=== PATIENT | male | born 1965 | race Caucasian/White ===

== ENCOUNTER 2018-02-13 12:25 | Emergency (ER) | payer SELFPAY ==
[2018-02-13 12:36] VITALS: TEMP 99.2; BMI 41.1
--- NOTE | 2018-02-13 12:48 | PDOC ---
History of Present Illness - History of Present Illness Initial Comments: Kazakh interpretation via [employer] phone 02/13/18 15:26 <Vicky Suh - Last Filed: 02/13/18 15:26> - General History Source: Patient Exam Limitations: No Limitations - History of Present Illness Initial Comments: 02/13/18 13:13 Mr. Ronny Mcarthur is a 52 yo M with no pertinent past medical history presenting with a laceration to the left cheek that was sustained at approximately 12 pm while at work. Per the patient, he states he was grinding a brick against a sample grinder when it broke loose and grazed his face. He denies blunt head trauma and LOC. Never had a tetanus shot beforehand. Denies the following: loss of sensation in the face, loss of motor skills in the face, nausea, dizziness, lightheadedness, headaches, vomiting, chest pain, SOB, abdominal pain, diarrhea , dysuria, and melena. <Dmitry Magaña - Last Filed: 02/13/18 16:35> - General Chief Complaint: Laceration Stated Complaint: LACERATION ON FACE Time Seen by Provider: 02/13/18 12:40 Past History <Vicky Suh - Last Filed: 02/13/18 15:26> - Past Medical History COPD: No - Suicide/Smoking/Psychosocial Hx Smoking History: Never smoked Have you smoked in the past 12 months: No Information on smoking cessation initiated: No Hx Alcohol Use: No Drug/Substance Use Hx: No Substance Use Type: Alcohol <Dmitry Magaña - Last Filed: 02/13/18 16:35> - Past Medical History Allergies/Adverse Reactions: Allergies Allergy/AdvReac Type Severity Reaction Status Date / Time No Known Allergies Allergy Verified 02/04/16 06:15 Home Medications: Ambulatory Orders NK [No Known Home Medication] 02/04/16 Review of Systems - Review of Systems Able to Perform ROS?: Yes Constitutional: No: Chills, Diaphoresis, Fever HEENTM: No: Eye Pain, Blurred Vision, Tearing, Recent change in vision, Double Vision, Ear Pain, Ear Discharge, Nose Pain, Nose Congestion, Tinnitus, Nose Bleeding, Hearing Loss, Throat Pain, Throat Swelling, Mouth Pain, Difficulty Swallowing, Mouth Swelling Respiratory: No: Cough, Shortness of Breath Cardiac (ROS): No: Chest Pain, Lightheadedness, Palpitations, Syncope, Chest Tightness ABD/GI: No: Constipated, Diarrhea, Nausea, Poor Appetite, Poor Fluid Intake, Rectal Bleeding, Vomiting, Abdominal cramping, Tarry Stools : No: Burning, Dysuria, Hematuria Musculoskeletal: No: Back Pain, Joint Pain Integumentary: Yes: Other (laceration to the left face). No: Bruising, Flushing , Lesions, Lumps Neurological: No: Headache, Tingling, Tremors, Weakness, Dizziness Psychiatric: No: Stressors Endocrine: No: Increased Hunger Hematologic/Lymphatic: No: Anemia <Dmitry Magaña - Last Filed: 02/13/18 16:35> *Physical Exam - Vital Signs Last Vital Signs Temp Pulse Resp BP Pulse Ox 99.2 F 76 18 169/100 100 02/13/18 12:33 02/13/18 12:33 02/13/18 12:33 02/13/18 12:33 02/13/18 12:33 <Vicky Suh - Last Filed: 02/13/18 15:26> - Vital Signs Last Vital Signs Temp Pulse Resp BP Pulse Ox 99.2 F 76 18 169/100 100 02/13/18 12:33 02/13/18 12:33 02/13/18 12:33 02/13/18 12:33 02/13/18 12:33 - Physical Exam General Appearance: Yes: Nourished, Appropriately Dressed HEENT: positive: EOMI, JACKIE, Normal Voice, Symmetrical, Other (no through and through in the mouth communicating to the laceration. no blood in the mouth cavity. 5 cm deep laceration linear. ) Neck: positive: Trachea midline. negative: Lymphadenopathy (R), Lymphadenopathy (L) Respiratory/Chest: positive: Lungs Clear, Normal Breath Sounds. negative: Chest Tender, Respiratory Distress, Accessory Muscle Use Cardiovascular: positive: Regular Rhythm, Regular Rate, S1, S2. negative: Systolic Murmur Vascular Pulses: Dorsalis-Pedis (R): 3+, Doralis-Pedis (L): 3+ Gastrointestinal/Abdominal: positive: Normal Bowel Sounds. negative: Tender Lymphatic: negative: Adenopathy Musculoskeletal: positive: Normal Inspection. negative: CVA Tenderness Extremity: positive: Normal Capillary Refill, Normal Inspection, Normal Range of Motion. 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, Fully Oriented, Alert, Normal Mood/ Affect, Normal Response, Motor Strength 5/5 <Dmitry Magaña - Last Filed: 02/13/18 16:35> Procedures - Laceration/Wound Repair Left Anterior Cheek Wound Length: 2.6 to 5.0 cm Wound Explored: clean, no foreign body present Wound's Depth, Shape: superficial, linear Irrigated w/ Saline: Yes Betadine Prep: No Anesthesia: 1% Lidocaine w/ Epi Amount of Anesthetic (ccs): 6 Wound Debrided: minimal Wound Repaired With: Sutures Suture Size/Type: 5:0 Number of Sutures: 12 (simple interrupted) Layer Closure: Yes Deep Layer Suture Size/Type: 5:0 (polysorb) Number of Deep Layer Sutures: 2 Sterile Dressing Applied: Yes Splint Applied: No Sling Applied: No Progress: 02/13/18 15:35 Asymptomatic and pain free at the end of the procedure. <Dmitry Magaña - Last Filed: 02/13/18 16:35> Medical Decision Making - Medical Decision Making 02/13/18 16:26 Mr. devi is a 52 yo M with no pertinent past medical hx (does not have a PMD) who presents to the ED with a laceration from a grinding disc. ddx: laceration Initial vitals: Initial Vital Signs Temp Pulse Resp BP Pulse Ox 99.2 F 76 18 169/100 100 02/13/18 12:33 02/13/18 12:33 02/13/18 12:33 02/13/18 12:33 02/13/18 12:33 Refer to procedure note for details of the laceration repair. The patient was given lidocaine with epi for analgesia control. The patient was asymptomatic after the procedure and had no complaints. His return precautions and wound care instructions were given. He was also told to follow up with his PMD for further care. He understood, agreed, and was able to walk out of the department on his own without assistance. Dispo: DC to home <Dmitry Magaña - Last Filed: 02/13/18 16:35> *DC/Admit/Observation/Transfer <Vicky Suh - Last Filed: 02/13/18 15:26> - Discharge Dispostion Decision to Admit order: No Decision to Admit order Date/Time: 02/13/18 15:38 <Dmitry Magaña - Last Filed: 02/13/18 16:35> Diagnosis at time of Disposition: Laceration - Discharge Dispostion Disposition: HOME - Referrals Referrals: [facility] [place] [Provider Group] - Patient Instructions Printed Discharge Instructions: DI for Laceration Repair Additional Instructions: You were seen in the emergency department for laceration repair to your left cheek. Your laceration was cleaned out and 2 deep dissolving sutures and 12 superficial non-dissolvable sutures were applied and your wound edges were approximated. Please return to the emergency department in 5 days for suture removal. Please keep the area dry; you can shower but keep that area where the sutures are. Please return to the emergency department if you develop new concerning symptoms such as fevers, chills, or loss of sensation in the face or your current symptoms worsen. Please see the referred primary medical doctor clinic within 24-36 hours for follow up care. Fuiste vista en el departamento de emergencia por noel reparacin de [facility]aceracin [facility]. Se elimin la laceracin y se aplicaron 2 suturas de disolucin profunda y 12 suturas superficiales no disolubles y se aproximaron los bordes de la herida. Por favor regrese al departamento de emergencia en 5 morris para remover la sutura. Por favor, mantenga el rhonda seca; puedes ducharte rossy mantener mary jane rhonda donde estn las suturas. Regrese al servicio de urgencias si desarrolla nuevos sntomas preocupantes, oswaldo fiebre, escalofros o prdida de la sensibilidad en la eduin o empeoran gill sntomas actuales. Consulte la clnica mdica primaria referida dentro de las 24-36 horas para recibir atencin de seguimiento. - Post Discharge Activity Forms/Work/School Notes: Back to Work
[2018-02-13] MEDS ORDERED: DIPHTH,PERTUSS(ACELL),TET 0.5 ML DISP.SYRIN IM ONE (13:24)
[2018-02-13] MEDS ORDERED: LIDO 2%/EPI 1:200000 PRESRVFRE (20 ML SDVIAL) INF ONE (13:28)
[2018-02-13] MEDS ORDERED: LIDOCAINE 1%/EPI 1:100000 (20 ML MULTI DOSE VIAL) ONE (13:39)
--- NOTE | 2018-02-13 15:25 | PDOC ---
Attending Attestation - Resident Resident Name: ArchanaDmitry - ED Attending Attestation I have performed the following: I have examined & evaluated the patient, The case was reviewed & discussed with the resident, I agree w/resident's findings & plan - HPI HPI: 02/13/18 15:22 Mr. 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 no pain, bleeding controlled; no weakness or paresthesias. 02/13/18 15:26 - Physicial Exam PE: 02/13/18 15:24 NAD, well appearing, PERRL, EOMI, MMM, nl conjunctiva, +left cheek laceration, deep and SQ tissue x 5cm, CN II-XII intact, dentition intact, no mucosal injury..; neck supple. GUNTER x4, no focal neuro deficits. No peripheral edema. normal color for ethnicity, [facility]. - Medical Decision Making 02/13/18 15:22 Mr. Ronny Mcarthur is a 52 yo M with no pertinent past medical history presenting with a laceration to the left cheek that was sustained at approximately 12 pm while at work. vitals with mild hypertension, will recheck, likely from pain and recent incident. tdap updated. laceration repaired by resident under my supervision, copious irrigation with sterile water x 500cc. 2 deep absorbable for better approximation., 12 simple interrupted 5-0 nylon sutures with hemostasis to left cheek deep laceration ~ 5cm. no neuro deficits or facial nerve/trigeminal palsy. return to ED in 5 days for suture removal. topical abx, dry dressings and cleaning, wound care precautions. monitor for signs of infection such as discharge, odor, pain, redness, swelling and f/c. instructions provided to patient and family at bedside, return precautions discussed. 02/13/18 15:25 02/13/18 15:27
[2018-02-13 16:14] VITALS: BP 146/115; PULSE 73
== END 2018-02-13 16:52 | disposition home or self-care (01) ==
LOC: JER 12:25
PROC: 0HQ1XZZ Repair Face Skin, External Approach (ICD-10-PCS; principal; 2018-02-13)
PROC: 3E0234Z Introduction of Serum, Toxoid and Vaccine into Muscle, Percutaneous Approach (ICD-10-PCS; 2018-02-13)
DX: S01.412A Laceration without foreign body of left cheek and temporomandibular area, initial encounter (principal); W20.8XXA Other cause of strike by thrown, projected or falling object, initial encounter; Y93.89 Activity, other specified; Y92.9 Unspecified place or not applicable; Y99.0 Civilian activity done for income or pay; I10 Essential (primary) hypertension
CPT/HCPCS: 90715; 99281-25

== ENCOUNTER 2018-02-17 09:50 | Emergency (ER) | payer OTHER ==
[2018-02-17 10:07] VITALS: BP 155/70; PULSE 67; TEMP 98.9; BMI 38.4
--- NOTE | 2018-02-17 10:38 | PDOC ---
Suture Removal/Wound Check HPI - History of Present Illness Chief Complaint: Suture/Staple Removal(Here) Stated Complaint: SUTURE/STAPLE REMOVAL Time Seen by Provider: 02/17/18 10:13 History Source: Yes: Patient Exam Limitations: Yes: No Limitations Treated at: [facility] ED - Previous ED Treatment Type of procedure performed on last visit: Yes: Laceration Repair Tetanus Immunization: Yes: Up to Date Antibiotics Prescribed: No - Onset of Previous Treatment Select one - (for the option above): Days (5) Comment:: 02/17/18 16:14 Came for suture removal after 5 days. 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 X-rays negative. Denies pain, swelling or bleeding from site however has a large hematoma above suture line 02/17/18 16:15 Past History - Travel Traveled outside of the country in the last 30 days: No Close contact w/someone who was outside of country & ill: No - Past Medical History Allergies/Adverse Reactions: Allergies Allergy/AdvReac Type Severity Reaction Status Date / Time No Known Allergies Allergy Verified 02/04/16 06:15 Home Medications: Ambulatory Orders NK [No Known Home Medication] 02/04/16 COPD: No DVT: No - Immunization History Immunization Up to Date: Yes - Suicide/Smoking/Psychosocial Hx Smoking History: Never smoked Have you smoked in the past 12 months: No Hx Alcohol Use: Yes Drug/Substance Use Hx: No Substance Use Type: Alcohol Suture Removal/Wound Check PE - Physical Exam Laceration/Wound Check Symptoms: denies: Fever Current Severity Level: None Maximum Severity Level: None Location of Laceration/Wound: left: Face *Review of Systems - Review of Systems Able to Perform ROS?: Yes Constitutional: Yes: Symptoms Reported, See HPI HEENTM: Yes: Symptoms Reported, See HPI All Other Systems: Reviewed and Negative *Physical Exam - Vital Signs Last Vital Signs Temp Pulse Resp BP Pulse Ox 98.9 F 67 16 155/70 100 02/17/18 10:04 02/17/18 10:04 02/17/18 10:04 02/17/18 10:04 02/17/18 10:04 - Physical Exam General Appearance: Yes: Nourished, Appropriately Dressed. No: Apparent Distress HEENT: positive: JACKIE, Normal ENT Inspection, TMs Normal, Pharynx Normal, Other (suture line to left zygomatic arch proximally 4 cm in length, appears well approximated however has significant hematoma superior to wound site approximately 3 cm x 1 cm which is mildly tender. 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 intact, Fully Oriented, Alert, Normal Mood/ Affect, Normal Response, Motor Strength 5/5 *DC/Admit/Observation/Transfer Diagnosis at time of Disposition: Visit for wound check - Discharge Dispostion Disposition: HOME Condition at time of disposition: Stable Decision to Admit order: No - Referrals - Patient Instructions Printed Discharge Instructions: How to Care for a Surgical Wound Additional Instructions: Rest, avoid strenuous activity or exercise until scabbing is completely resolved May use bacitracin ointment until scabbing is gone After may use vitamin E oil, poke hole in vitamin E capsule and use oil from the capsule on wound- may help resolve some of the discoloration of the scar Keep wound out of the sun for at least one year to avoid darkening of scar tissue - Post Discharge Activity Forms/Work/School Notes: Back to Work
== END 2018-02-17 11:08 | disposition home or self-care (01) ==
LOC: JERFT 09:50
DX: Z48.01 Encounter for change or removal of surgical wound dressing (principal)
CPT/HCPCS: 99281-25

== ENCOUNTER 2018-02-21 18:03 | Emergency (ER) | payer SELFPAY ==
[2018-02-21 18:38] VITALS: BP 163/90; PULSE 78; TEMP 100.5; BMI 37.2
--- NOTE | 2018-02-21 18:44 | PDOC ---
History of Present Illness - General Chief Complaint: Wound Stated Complaint: STITCHES REMOVAL Time Seen by Provider: 02/21/18 18:43 - History of Present Illness Initial Comments: 02/21/18 18:57 Mr. Ronny Mcarthur is a 52 yo male w/ pmh of recent trauma to face 02/13 when a brick hit him in the head at work. Patient presents for suture removal - sent back from fast track as patient had temperature of 100.4 at triage. Patient reports he has had 3 day history of nasal congestion and cough productive of yellow sputum; endorses fever today only. Reports swelling over wound has continually decreased and that burst blood vessels noted to left eye have improved as well. The patient denies chest pain, shortness of breath, headache and dizziness. Denies chills, nausea, vomit, diarrhea and constipation. Denies dysuria, frequency, urgency and hematuria. Allergies: NKDA Past History - Past Medical History Allergies/Adverse Reactions: Allergies Allergy/AdvReac Type Severity Reaction Status Date / Time No Known Allergies Allergy Verified 02/21/18 18:35 Home Medications: Ambulatory Orders Azithromycin [Zithromax 250mg Tablets -] 250 mg PO UTDICT #6 tab 02/21/18 COPD: No DVT: No - Immunization History Immunization Up to Date: Yes - Suicide/Smoking/Psychosocial Hx Smoking History: Never smoked Have you smoked in the past 12 months: No Hx Alcohol Use: Yes Drug/Substance Use Hx: No Substance Use Type: Alcohol Review of Systems - Review of Systems Comments:: 02/21/18 19:04 GENERAL/CONSTITUTIONAL: No fever or chills. No weakness. HEAD, EYES, EARS, NOSE AND THROAT: No change in vision. No ear pain or discharge. No sore throat. CARDIOVASCULAR: No chest pain or shortness of breath RESPIRATORY: +Productive cough as described. No wheezing, or hemoptysis. GASTROINTESTINAL: No nausea, vomiting, diarrhea or constipation. GENITOURINARY: No dysuria, frequency, or change in urination. MUSCULOSKELETAL: No joint or muscle swelling or pain. No neck or back pain. SKIN: No rash NEUROLOGIC: No headache, vertigo, loss of consciousness, or change in strength/ sensation. ENDOCRINE: No increased thirst. No abnormal weight change HEMATOLOGIC/LYMPHATIC: No anemia, easy bleeding, or history of blood clots. ALLERGIC/IMMUNOLOGIC: No hives or skin allergy. *Physical Exam - Vital Signs Last Vital Signs Temp Pulse Resp BP Pulse Ox 100.5 F H 78 16 163/90 99 02/21/18 18:35 02/21/18 18:35 02/21/18 18:35 02/21/18 18:35 02/21/18 18:35 - Physical Exam Comments: 02/21/18 19:04 GENERAL: Awake, alert, and fully oriented, in no acute distress HEAD: +Well healing approx. 7cm laceration noted to left face. Small contusion noted above. Blood noted in left sclera reportedly improved per patient. EYES: PERRLA, EOMI, sclera anicteric, conjunctiva clear ENT: Auricles normal inspection, hearing grossly normal, nares patent, oropharynx clear without exudates. Moist mucosa NECK: Normal ROM, supple, no lymphadenopathy, JVD, or masses LUNGS: No distress, speaks full sentences, clear to auscultation bilaterally HEART: Regular rate and rhythm, normal S1 and S2, no murmurs, rubs or gallops, peripheral pulses normal and equal bilaterally. ABDOMEN: Soft, nontender, normoactive bowel sounds. No guarding, no rebound. No masses EXTREMITIES: Normal inspection, Normal range of motion, no edema. No clubbing or cyanosis. NEUROLOGICAL: Cranial nerves II through XII grossly intact. Normal speech, normal gait, no focal sensorimotor deficits SKIN: Warm, Dry, normal turgor, no rashes or lesions noted. ED Treatment Course - LABORATORY CBC & Chemistry Diagram: 02/21/18 19:01 02/21/18 19:01 Medical Decision Making - Medical Decision Making 02/21/18 19:34 Mr. Jefferson is a 52 yo male w/ pmh as described who presents for evaluation of stitch removal. Per note patient had 2 deep sutures (absorbable) and 12 superficial sutures (non-absorbable). Patient sent back from fast-track as noted to have a fever. Patient endorses cough and viral symptoms; suspect this as etiology of fever. Labs sent as below for evaluation and CXR performed. 12 non-absorbable stitches removed. 02/21/18 20:02 Patient labs grossly wnl as below. CXR revealed some congestion; z-chaka given to patient for prophylactic care. Discussed with patient who will follow-up with PCP as needed and take medications as proscribed. Rx sent to patient's pharmacy. Discharging to home. *DC/Admit/Observation/Transfer Diagnosis at time of Disposition: Laceration, Cough, Visit for suture removal - Discharge Dispostion Disposition: HOME - Prescriptions Prescriptions: Azithromycin [Zithromax 250mg Tablets -] 250 mg PO UTDICT #6 tab - Referrals - Patient Instructions Printed Discharge Instructions: DI for Suture Removal Additional Instructions: You were evaluated today in the ER for your suture removal. We also evaluated your cough. Stitches were removed without difficulty. Please follow directions on attached care instructions. Chest x-ray revealed some congestion; we sent a z -chaka to your pharmacy for further care. Please take all medications as described. Follow-up with primary care provider in 1-2 days for cough; return to ER if any further fever, chills, pain, or other concerning symptoms. Print Language: TURKMEN - Post Discharge Activity
--- NOTE | 2018-02-21 18:53 | PDOC ---
Attending Attestation - Resident Resident Name: Alfonso Beyer - ED Attending Attestation I have performed the following: I have examined & evaluated the patient, The case was reviewed & discussed with the resident, I agree w/resident's findings & plan, Exceptions are as noted - HPI HPI: 02/21/18 18:54 Mr. Ronny Mcarthur is a 52 yo M who presents to the ER for suture removal He was found to have a low grade fever Pt was discharged without abx states he had had no fevers at home he had had a cough for the past 3 days - Physicial Exam PE: 02/21/18 19:01 Pt is awake and alert EOMI, Left subconjunctival hematoma, PERRLA Left cheek laceration, well approximated Swelling noted superior to the laceration, no expressible purulence, NO surrounding erythema RRR CTA b/l No abd tenderness 02/21/18 20:23 - Medical Decision Making 02/21/18 19:03 52 yo M presenting for suture removal Low grade fever DD: Cough/bronchitis/Pneumonia vs. Local wound infection will do: Basic labs CXR consider facial imaging 02/21/18 20:24 Laboratory Tests 02/21/18 19:01 WBC 7.4 Neutrophils % 66.7 Lymphocytes % 22.5 D Pt states his wound has markedly improved It is not painful at all he feels well over all Pt asked to monitor himself for fevers Will give Azithromycin Local wound care - can get face wet, avoid re injuring the area, can apply mederma and sunscreen Return to the ER immediately for any concerns or complaints, wound dehiscence, fevers, redness around wound, drainage
[2018-02-21 19:15] LABS: BASO % 0.8 % (0-2.0); EOS % 1.4 % (0-4.5); HEMATOCRIT 43.8 % (35.4-49); HEMOGLOBIN 15.2 GM/dL (11.7-16.9); LYMPH % 22.5 % (8-40); MCH 30.9 pg (25.7-33.7); MCHC 34.6 g/dl (32.0-35.9); MEAN CELL VOLUME 89.2 fl (80-96); MEAN PLT VOLUME 7.3 fl (7.5-11.1); MONO % 8.6 % (3.8-10.2); NEUT % 66.7 % (42.8-82.8); PLATELET COUNT 261 K/MM3 (134-434); RBC 4.91 M/mm3 (4.00-5.60); RDW 12.7 % (11.9-15.9); WHITE BLOOD COUNT 7.4 K/mm3 (4.0-10.0)
[2018-02-21] MEDS ORDERED: BACITRACIN 0.9 GM PACKET ONE ×3 (19:39→19:52)
[2018-02-21] MEDS ORDERED: BACITRACIN 15 GM TUBE TOPICAL OINTMENT TP ONE (19:42)
[2018-02-21 19:47] LABS: ALBUMIN 4.4 g/dl (3.4-5.0); ALK PHOS 98 U/L (45-117); ANION GAP 8 MMOL/L (8-16); BILIRUBIN,TOTAL 0.9 mg/dL (0.2-1); BLOOD UREA NITROGEN 17 mg/dL (7-18); CALCIUM 8.7 mg/dL (8.5-10.1); CHLORIDE 100 mmol/L (98-107); CO2 30 mmol/L (21-32); CREATININE 0.7 mg/dL (0.55-1.3); GLUCOSE,RANDOM 101 mg/dL (74-106); POTASSIUM 3.8 mmol/L (3.5-5.1); SGOT/AST 20 U/L (15-37); SGPT/ALT 42 U/L (13-61); SODIUM 138 mmol/L (136-145)
== END 2018-02-21 20:15 | disposition home or self-care (01) ==
LOC: JER 18:03
DX: Z48.817 Encounter for surgical aftercare following surgery on the skin and subcutaneous tissue (principal); Z48.02 Encounter for removal of sutures; R50.9 Fever, unspecified; R05 Cough
CPT/HCPCS: 36415; 71046-TC-FY; 80053; 85025; 99283-25